=== PATIENT | female | born 1970 | race African-American/Black ===

== ENCOUNTER 2020-05-08 15:06 | Emergency (ER) | payer OTHER, SELFPAY ==
--- NOTE | 2020-05-08 15:22 | ED.DENTAL ---
HPI - Dental/Oral General Chief complaint: Dental/Oral Stated complaint: Dental/Oral Time Seen by Provider: 05/08/20 15:23 Source: patient and RN notes reviewed History of Present Illness HPI Narrative: Patient is a 49-year-old female who presents the urgent care with complaints of left upper dental pain. Patient states that she has had a broken tooth for some time and just started having a lot of pain approximately 3 days ago. Patient states that it is very sensitive to heat and cold and she feels some shooting of the pain up into the jaw and ear. Patient states that she has not seen a dentist in a very long time but is supposed to be getting a call back to see someone at [facility] within the next couple weeks. Patient denies of any fever, chills, nausea, vomiting. Patient states that she has been using Tylenol for pain. No other acute complaints. No acute distress noted. Patient aware of the plan of care. Some parts of this dictation were generated by voice recognition software and may contain typographical and/or grammatical inaccuracies. Related Data Allergies Allergy/AdvReac Type Severity Reaction Status Date / Time No Known Allergies Allergy Verified 05/08/20 15:25 Review of Systems Review of Systems: Narrative: CONSTITUTIONAL: Denies fever, chills, or sweats. EYES: Denies visual changes, redness, or discharge. ENT: Denies rhinorrhea, congestion, sore throat, or otalgia. Reports of left upper dental pain CARDIOVASCULAR: Denies chest pain, palpitations, or edema. RESPIRATORY: Denies cough or dyspnea. GASTROINTESTINAL: Denies abdominal pain, nausea, vomiting, or diarrhea. GENITOURINARY: Denies dysuria or hematuria. SKIN: Denies rash or itching. MUSCULOSKELETAL: Denies back pain, joint pain, or myalgia. NEUROLOGIC: Denies headache, numbness, or weakness. All other systems reviewed are negative, except as documented in HPI. PMFSH Comments At the time of my signature, I reviewed and agree with the nursing past medical, surgical, social, and family history. There is no relevant family history pertinent to the patient complaint. Exam Narrative: Exam Narrative: GENERAL: This is a well-nourished, well-developed patient, in no apparent distress. HEAD: normocephalic, atraumatic. EYES: PERRL. Sclera clear/white. Vision is grossly intact. EARS: External ears normal NOSE: External nose normal with no obvious nasal discharge, nares without redness, no rhinorrhea. THROAT: Mucous membranes moist, posterior pharynx clear. DENTAL: Poor dentition throughout. Missing dentition noted. Moderate erythema and mild edema surrounding the upper left first premolar with obvious avulsion at the gumline and carious lesions noted. NECK: Neck supple SKIN: warm, intact with no suspicious lesions or rash, good texture and turgor. NEURO: awake, alert, and oriented to person, place and time. There were no obvious focal neurologic abnormalities. EXTREMITIES: No clubbing, cyanosis, or edema. Course Vital Signs Vital signs: Vital Signs Temperature 98.2 F 05/08/20 15:24 Pulse Rate 85 05/08/20 15:24 Respiratory Rate 16 05/08/20 15:24 Blood Pressure 143/90 H 05/08/20 15:24 Pulse Oximetry 100 05/08/20 15:24 Temperature 98.2 F 05/08/20 15:24 Pulse Rate 85 05/08/20 15:24 Respiratory Rate 16 05/08/20 15:24 Blood Pressure 143/90 H 05/08/20 15:24 Pulse Oximetry 100 05/08/20 15:24 Reviewed-patient is informed that they may have pre-hypertension or hypertension based on a blood pressure reading in the department. I recommend the patient call the primary care provider listed on their discharge instructions or a physician of their choice this week to arrange follow-up for further evaluation of possible pre-hypertension or hypertension. MDM - Dental/Oral MDM Narrative Medical decision making narrative: Advised the patient to use an ice pack as needed for comfort to the left face. Continue Tylenol for pain. Complete a oral ant
[2020-05-08 15:24] VITALS: BP 143/90; PULSE 85; RESP 16; TEMP 36.8; O2SAT 100
== END 2020-05-08 15:43 | disposition home or self-care (01) ==
PROVIDERS: Emergency Provider Nurse Practitioner Family
DX: K04.7 Periapical abscess without sinus (principal); K02.9 Dental caries, unspecified
CPT/HCPCS: 99213; G0463

== ENCOUNTER → 2020-09-27 13:25 | Outpatient (CLI) | payer OTHER, SELFPAY ==
--- NOTE | ~2020-09-27 | MM_ITS ---
EXAMINATION: MM screening luis carlos BI w [facility] HISTORY: Screening mammogram TECHNIQUE: Craniocaudal and mediolateral oblique 3-D tomosynthesis images were obtained and synthetic 2-D images were generated. CAD analysis was submitted and interpreted. COMPARISON: No prior mammogram is available for comparison at this institution. BREAST PARENCHYMAL COMPOSITION: The breasts are heterogeneously dense, which may obscure small masses . FINDINGS: There is no evidence of suspicious mass, calcification, or architectural distortion to sugg est malignancy in either breast. There has been no suspicious interval change. IMPRESSION: 1. No mammographic evidence of malignancy. 2. Recommend routine screening mammography in one year. BI-RADS Category 1: Negative Reviewed, dictated and finalized at location A.
== END ==
PROVIDERS: Visit Provider Obstetrics & Gynecology
DX: Z12.31 Encounter for screening mammogram for malignant neoplasm of breast (principal)
CPT/HCPCS: 77063; 77067

== ENCOUNTER → 2020-09-28 03:25 | Outpatient (CLI) | payer OTHER, SELFPAY ==
[2020-09-28 19:50] LABS: SARS-CoV-2 RNA PCR Negative
== END ==
PROVIDERS: Visit Provider Obstetrics & Gynecology
DX: Z01.812 Encounter for preprocedural laboratory examination (principal); Z20.822 Contact with and (suspected) exposure to COVID-19
CPT/HCPCS: C9803; U0003; U0005

== ENCOUNTER 2020-10-01 00:38 | Day surgery (SDC) | payer OTHER, SELFPAY ==
[2020-09-18 15:18] VITALS: BMI 26.7
--- NOTE | 2020-09-28 12:38 | WPDANESEPPF ---
Anes - Initial Pre Proc Eval Procedure: Operation Date: 10/01/20 10:30 Proposed Procedures p Hysteroscopy, Dilation and Curettage, Endometrial Ablation with Sulma - Jojo Chen MD Date/Time: 09/28/20 12:38 Surgeon: Jojo Chen MD Pre Op Diagnosis: menorrhagia Patient Data Age: 49 Gender: F Height: 1.65 m Weight: 73 kg Allergies Allergy/AdvReac Type Severity Reaction Status Date / Time No Known Allergies Allergy Verified 10/01/20 08:55 Home Medications Medication Instructions Recorded Confirmed Type amoxicillin-pot clavulanate 1 tablet PO Q12H #20 tablet 05/08/20 Rx [Augmentin] progesterone micronized 200 mg PO DAILY 09/18/20 09/18/20 History Patient hx anesthesia problems: none Family hx anesthesia problems: none [facility] Past Medical History Medical History Overweight (BMI 25.0-29.9) Smoker Social History Social History (System 09/19/20 @ 07:39 by Falguni Montoya) Years smoked: 3 Smoking status: Light tobacco smoker Tobacco type: cigarettes Second hand tobacco smoke exposure: No Alcohol intake: never Substance use: never Living arrangements: with family Spiritual care concerns: No Anes - Eval Final PreProcedure Day of Procedure 09/28/20 12:38 Patient weight: overweight Heart: regular rate and rhythm Lungs: clear to auscultation and normal air movement Airway: Mallampati scale class II Neurological: alert and oriented Last oral intake: >/= 8 hours ASA classification: II Emergent: no Anesthetic plan: proceed Anesthesia type and monitoring: general GIVS and LMA Informed Consent: The patient's anesthetic plan and its attendant risks and benefits were discussed with the patient/family/POA. Questions were solicited and answers provided to the satisfaction of the patient/family/POA.
[2020-10-01 08:26] VITALS: BP 138/86; PULSE 84; RESP 16; TEMP 36.6; O2SAT 100
[2020-10-01] MEDS: LACTATED RINGERS 1,000 ML 30 ML IV CONT ×2 (09:30→11:19)
[2020-10-01] MEDS: ACETAMINOPHEN 500 MG TABLET 1000 MG PO (09:31)
--- NOTE | 2020-10-01 09:43 | PM.IMHP ---
H&P: HPI History of Present Illness Date/Time: 10/01/20 09:43 Chief Complaint: menometrorrhagia Narrative: William is a 49yo who presents for ablation for menometrorrhagia. Over the last year, having menses twice per month, heavy. EMB benign. Smoker, no estrogen. US normal except for possible septum. Review of Systems Review of Systems: All systems reviewed & are unremarkable except as noted in HPI and below PMFSH Past Medical History Medical History Overweight (BMI 25.0-29.9) Smoker Social History Social History (System 09/19/20 @ 07:39 by Falguni Montoya) Years smoked: 3 Smoking status: Light tobacco smoker Tobacco type: cigarettes Second hand tobacco smoke exposure: No Alcohol intake: never Substance use: never Living arrangements: with family Spiritual care concerns: No Meds Home Medications and Allergies Home Medications Medication Instructions Recorded Confirmed Type amoxicillin-pot clavulanate 1 tablet PO Q12H #20 tablet 05/08/20 Rx [Augmentin] progesterone micronized 200 mg PO DAILY 09/18/20 09/18/20 History Allergies Allergy/AdvReac Type Severity Reaction Status Date / Time No Known Allergies Allergy Verified 10/01/20 08:55 Exam Const: General: no acute distress Resp: Effort & Inspection: normal respiratory effort Auscultation: clear to auscultation bilaterally Cardio: Rate: regular rate Rhythm: regular rhythm GI: GI Palp: Yes Soft to palpation Extrem: General: normal to inspection Assessment and Plan Assessment and plan (1) Menometrorrhagia: Code(s): N92.1 - Excessive and frequent menstruation with irregular cycle Status: Acute Additional Plan She desires endometrial ablation. She is aware that if septum is present and significant, we may not be able to do ablation, in which case I will do a curettage. HTA not available. The indications, risks, and benefits and alternatives to surgery were discussed with the patient. I explained that the risks include, but are not limited to: bleeding and possible need for transfusion, infection, damage to adjacent structures including the bladder, ureters, bowel, or major vessels, need for additional surgery, and risks from anesthesia. I explained that there is also a chance that the symptoms may not improve after surgical intervention. She voices understanding and wishes to proceed.
--- NOTE | 2020-10-01 09:48 | WPDHPUPDATE1 ---
History and Physical Update Update Date/Time: 10/01/20 09:48 History and Physical has been reviewed, including an updated exam of the patient. There are NO changes in the patient's condition. Risks, benefits, and alternatives have been discussed and questions answered. Patient agrees to proceed with procedure.
[2020-10-01] MEDS: KETOROLAC 30 MG/ML VIAL (*BKC) IV PUSH (10:33)
[2020-10-01] MEDS: BUPIVACAINE/EPINEPHRINE 0.25% 10 ML VIAL INFILTRATE (10:44)
--- NOTE | 2020-10-01 11:15 | W.PM.PROC2 ---
Procedure Note - Detailed Date of Procedure 10/01/20 Pre-op Diagnosis menorrhagia Post-op Diagnosis same Procedure Performed Hysteroscopy and Sulma endometrial ablation Surgeon Jojo Chen MD Post Acute Care Registered Nurse none Anesthesia MAC and local Indications menometrorrhagia Findings NO uterine septum. Cervix tortuous making dilation difficult. Uterine cavity turns off to left side. Description of Procedure The patient was taken to the operating room and placed in supine position. She received MAC anesthesia and was placed in dorsal lithotomy position in stirrups. A speculum was placed and the anterior lip of the cervix was grasped with a single tooth tenaculum. A paracervical block of 10cc of 0.25% marcaine with epinephrine was done. The cervix sounded to 10cm and the cervix was 5.5cm long, giving a uterine cavity length of 4.5cm. The Sulma device was set to this length. The cervix was sequentially dilated to an 8 Sara, which was a longer process due to tortuous and nonpliable cervix. The hysteroscope was inserted and the cavity visualized and appeared to be normal with no septum, though it did favor the left side. The scope was removed and the Sulma device inserted through the cervix easily. The balloon was inflated to attain a cervical seal. The device was activated and passed the cavity assessment. It ablated for 2 minutes. The device was removed, the hysteroscope was reinserted and the endometrium was noted to be blanched appropriately. The scope was once again removed. The tenaculum was removed and the cervix was made hemostatic with pressure and Monsel's solution. The speculum was removed. The patient was awakened from anesthesia and taken to the recovery room in stable condition. Estimated Blood Loss 15 Drains No Packing No Pathology none sent Complications No immediate complications Condition stable Disposition same day
[2020-10-01 11:19] VITALS: BP 107/74; PULSE 89; RESP 16; O2SAT 99
[2020-10-01 11:50] VITALS: BP 116/76; PULSE 72
[2020-10-01] MEDS: oxyCODONE HCL (*CRX) 5 MG TAB IR PO (12:03)
[2020-10-01 12:20] VITALS: BP 137/92; PULSE 66; RESP 16
== END 2020-10-01 12:39 | disposition home or self-care (01) ==
PROVIDERS: Visit Provider Obstetrics & Gynecology
PROC: 0U5B8ZZ Destruction of Endometrium, Via Natural or Artificial Opening Endoscopic (ICD-10-PCS; CPT 58563; principal; 2020-10-01 10:30)
DX: N92.1 Excessive and frequent menstruation with irregular cycle (principal); F17.210 Nicotine dependence, cigarettes, uncomplicated
CPT/HCPCS: 58563; A9270; J1100; J1885; J2250; J2405; J2704; J3010; J7030; J7120